=== PATIENT | female | born 1960 | race Caucasian/White ===

== ENCOUNTER 2017-01-25 06:29 | Day surgery (SDC) | payer MEDICARE, OTHER ==
--- NOTE | ~2017-01-25 | EGD ---
EGD REPORT [facility] [address] [address] NAME: ERNA IBARRA : 56 STATUS : REG [facility] PAT#: [id number] AGE: 56 ADM/REG DATE : 01/25/17 MR#: [id number] REPORT SERV DATE: 01/25/17 DICTATED BY: ZAHEER CHRIS DATE: 01/25/17 REPORT STATUS : Draft TRANSCRIBED BY: [facility] DATE: 01/25/17 Endoscopy Center Patient Name: Erna Ibarra Date of : 1960 Attending MD: ZAHEER CHRIS MD Procedure Date No Time: 01/25/2017 Procedure: Upper GI endoscopy Indications: Epigastric abdominal pain, Dyspepsia Medicines: Sedation Required Anesthesia Staff Assistance Complications: No immediate complications. Estimated blood loss: Minimal. Procedure: Pre-Anesthesia Assessment: - ASA Grade Assessment: III - A patient with severe systemic disease. After obtaining informed consent, the endoscope was passed under direct vision. Throughout the procedure, the patient's blood pressure, pulse, and oxygen saturations were monitored continuously. The GIF [id number] was introduced through the mouth, and advanced to the third part of duodenum. The upper GI endoscopy was accomplished without difficulty. The patient tolerated the procedure well. Findings: The examined esophagus was normal. A small hiatus hernia was present. Diffuse mildly erythematous mucosa without bleeding was found in the entire examined stomach. Biopsies were taken with a cold forceps for histology. The examined duodenum was normal. Biopsies were taken with a cold forceps for histology. Impression: - Normal esophagus. - Hiatus hernia. - Erythematous mucosa in the stomach. Biopsied. - Normal examined duodenum. Biopsied. Recommendation: - Await pathology results. - Patient has a contact number available for emergencies. The signs and symptoms of potential delayed complications were discussed with the patient. Return to normal activities tomorrow. Written discharge instructions were provided to the patient. - Return to previous diet daily. - Patient has a contact number available for EGD REPORT [address] [address] NAME: ERNA IBARRA : 56 STATUS : REG [facility]#: [id number] AGE: 56 ADM/REG DATE : 01/25/17 MR#: [id number] REPORT SERV DATE: 01/25/17 DICTATED BY: ZAHEER CHRIS. DATE: 01/25/17 REPORT STATUS : Draft TRANSCRIBED BY: [employer] DATE: 01/25/17 emergencies. The signs and symptoms of potential delayed complications were discussed with the patient. Return to normal activities tomorrow. Written discharge instructions were provided to the patient. - Continue present medications. Procedure Code(s): --- Professional --- 48477, Esophagogastroduodenoscopy, flexible, transoral; with biopsy, single or multiple Diagnosis Code(s): --- Professional --- K31.9, Disease of stomach and duodenum, unspecified R10.13, Epigastric pain K30, Functional dyspepsia K44.9, Diaphragmatic hernia without obstruction or gangrene CPT copyright 2013 [employer]. All rights reserved. The codes documented in this report are preliminary and upon mailmaster review may be revised to meet current compliance requirements. ZAHEER HCRIS MD 01/25/2017 8:07 AM This report has been signed electronically. Number of Addenda: 0 Note Initiated On: 01/25/2017 7:37 AM Scope Withdrawal Time 0 hours 0 minutes 0 seconds [address] [place] [address]
[~2017-01-25 06:29] MED LIST: ASAB PO; BREO ELLIPTA INH; C25 PO; C5 PO; COUMADIN4 MG PO; DEMA20 PO; DUONEB INH; GLUCOPHAGE1000 MG PO; L40 PO; LIPITOR80 MG PO; LOVENOX; LOVENOX1C SC; NEXIUM40 PO; OXYCON20 PO; OXYCONTIN30 MG PO; PLAVIX PO; REQUIP2 PO; ROXICODONE15 MG PO; VENTOLIN HFA INH; XANAX1 MG PO; XARELTO20 MG PO; ZESTORETIC1 TA1 PO; ZESTRIL20 MG PO; ZETIA PO
[2017-01-25 06:52] LABS: INTERNATIONAL NORMAL RATI 1.1 UNITS (-); PROTIME (NOT ORD) 13.9 SEC (12.0-14.5)
== END 2017-01-25 23:59 | disposition home or self-care (01) ==
LOC: DMU 06:29
PROVIDERS: Internal Medicine Gastroenterology
PROC: 0DB68ZX Excision of Stomach, Via Natural or Artificial Opening Endoscopic, Diagnostic (ICD-10-PCS; 2017-01-25)
PROC: 0DB98ZX Excision of Duodenum, Via Natural or Artificial Opening Endoscopic, Diagnostic (ICD-10-PCS; principal; 2017-01-25 08:00)
DX: K31.9 Disease of stomach and duodenum, unspecified (principal); K44.9 Diaphragmatic hernia without obstruction or gangrene; K30 Functional dyspepsia; N18.9 Chronic kidney disease, unspecified; E11.22 Type 2 diabetes mellitus with diabetic chronic kidney disease; I25.10 Atherosclerotic heart disease of native coronary artery without angina pectoris; E66.01 Morbid (severe) obesity due to excess calories; J44.9 Chronic obstructive pulmonary disease, unspecified; J45.909 Unspecified asthma, uncomplicated; F31.9 Bipolar disorder, unspecified; I73.9 Peripheral vascular disease, unspecified; Z88.6 Allergy status to analgesic agent; Z88.5 Allergy status to narcotic agent; Z88.0 Allergy status to penicillin; Z88.2 Allergy status to sulfonamides; Z88.8 Allergy status to other drugs, medicaments and biological substances; Z87.891 Personal history of nicotine dependence; Z90.49 Acquired absence of other specified parts of digestive tract; Z90.710 Acquired absence of both cervix and uterus
CPT/HCPCS: 82962; 85610; 88305

== ENCOUNTER 2017-03-31 08:50 | Inpatient (IN) | payer MEDICARE, OTHER ==
--- NOTE | ~2017-03-31 | CN ---
Consultation Report [facility] [address] [place]. [address] NAME: DRAGAN IBARRA : 56 STATUS : ADM IN PAT#: [id number] AGE: 56 ADM/REG DATE : 04/01/17 MR#: [id number] REPORT SERV DATE: 04/02/17 DICTATED BY: LEVY LOVE IV DATE: 04/02/17 REPORT STATUS : Draft TRANSCRIBED BY: WESLEY DATE: 04/02/17 PULMONARY CONSULTATION. DATE OF CONSULTATION: 04/02/2017 REASON FOR REQUEST: Masslike infiltrate with hemoptysis. HISTORY OF PRESENT ILLNESS: History was obtained from the records and from the patient. Ms. Ibarra is a 56-year-old female with a history of peripheral arterial disease, hypertension, past DVT, chronic kidney disease, reflux disease, anxiety disorder, and COPD with asthma who is admitted with pleuritic pain, shortness of breath, and pneumonic infiltrate in the right upper lobe. The patient noted pleuritic chest pain in the right upper shoulder about two weeks ago. This seemed to progress. She noted increasing chest congestion, cough, and then felt that she was burning up over the last 72 hours. She developed an episode of hemoptysis which she describes as about a quarter cup, which prompted her evaluation in the emergency room. There a chest CT scan was obtained demonstrating a masslike infiltrate in the right upper lobe with some central cavitation without significant adenopathy. The patient was empirically placed on Levaquin with marked clinical improvement. She has had no significant hemoptysis since hospitalization. The patient had no exposure to ill individuals. She does admit to having an episode where she bit her tongue during the night about two months ago and she is concerned may be aspirated to include blood. She does have significant reflux symptoms though has no known aspiration associated with this. She has no history of exposure to high-risk individuals for TB or previous positive PPD. The patient reportedly snores and her bed partner has noted apneic episodes. Sleep is marginally restorative. She does complain of sedentary hypersomnolence. PULMONARY HISTORY: Remarkable for no history of childhood asthma. She carries a diagnosis of adult asthma and COPD. She has had pneumonia in the past. She is more than 80-pack year smoker who quit in 02/2016. She thinks she is up to date on her immunizations. PAST MEDICAL HISTORY: 1. Peripheral arterial disease. 2. Hypertension. 3. DVT. 4. Chronic kidney disease. 5. Reflux disease. 6. Anxiety disorder. 7. COPD with asthma. SURGERIES: The patient has had multiple arterial stents placed in the past. She has bilateral knee replacements. She had a laparoscopic cholecystectomy, total abdominal hysterectomy, and questionable appendectomy. Consultation Report [facility] [address] [place]. [address] NAME: DRAGAN IBARRA : 56 STATUS : ADM IN PAT#: [id number] AGE: 56 ADM/REG DATE : 04/01/17 MR#: [id number] REPORT SERV DATE: 04/02/17 DICTATED BY: LEVY LOVE IV DATE: 04/02/17 REPORT STATUS : Draft TRANSCRIBED BY: WESLEY DATE: 04/02/17 CURRENT MEDICATIONS: The patient is on aspirin 81 mg daily, Coumadin per pharmacy, Demadex 20 mg daily, DuoNeb every four hours, albuterol q.2 hours as needed, guaifenesin 1200 mg twice a day, Levaquin 750 mg daily, Levemir 10 units twice a day, level three insulin sliding scale, Plavix 75 mg daily, Protonix 40 mg twice a day, and Requip 2 mg twice a day. SOCIAL HISTORY: Remarkable for the tobacco use as above. There is no alcohol or illicit drug use. She has a significant other, no children. FAMILY HISTORY: Remarkable for a sister with diabetes, multiple family members with hypertension and coronary artery disease and one sister with breast cancer. REVIEW OF SYSTEMS: 14-system reviewed. Pertinent positives as noted above. PHYSICAL EXAMINATION: GENERAL: This is a pleasant, obese, elderly female, in no acute distress. She is alert, awake, and oriented. VITAL SIGNS: Temperature is 98.2, pulse is 96, respiratory rate 16, saturation 96% on room air and blood pressure is 113/55. HEENT: Normocephalic, atraumatic. Extraocular movements are intact. Pupils react to light. Sclerae and conjunctiva normal. She has no drainage from either nasal passage. She has a Mallampati 4 airway with marked narrowing in the posterior pharyngeal space. No retrognathic lower jaw. NECK: Without any palpable lymphadenopathy or thyromegaly. CHEST: The patient has decreased breath sounds symmetrically. There were some expiratory rhonchi on the right that cleared with cough. No true wheezes are noted. CARDIOVASCULAR: Jugular venous pulsations are difficult to elicit. She has 1+ carotid upstrokes with bilateral bruits. There is distant regular S1, S2 with no clear murmur or S3. Peripheral pulses are diminished. ABDOMEN: Surgical scars noted. Obese, soft, nontender. There are hypoactive bowel sounds. There is no palpable hepatosplenomegaly or mass. EXTREMITIES: Demonstrate scars on her knees. There are chronic venous stasis changes. There is no cyanosis, clubbing, or palpable cords. NEUROLOGIC: Strength is 5/5 and sensation intact to light touch. LABORATORY DATA: Chest CT scan demonstrates the almost masslike infiltrate in the right upper lobe posteriorly with, what appears to be, central necrosis. There is infiltrate. In addition, there is no significant adenopathy. There is evidence for old granulomatous disease. There is some paraseptal and centrilobular emphysematous changes. CBC: Hemoglobin is 8.4, hematocrit 28.1, platelet count was 568,000, and white blood cell count is 18.5, INR is 2.9. Chemistry: Sodium 130, potassium 4.0, chloride 93, bicarbonate 27, BUN 25, creatinine 1.3, glucose of 252, mag is 1.8. ASSESSMENT AND PLAN: Consultation Report [address] [place]. [address] NAME: DRAGAN IBARRA : 56 STATUS : ADM IN [facility]#: [id number] AGE: 56 ADM/REG DATE : 04/01/17 MR#: [id number] REPORT SERV DATE: 04/02/17 DICTATED BY: LEVY LOVE IV DATE: 04/02/17 REPORT STATUS : Draft TRANSCRIBED BY: [employer] DATE: 04/02/17 1. Respiratory. I will add Dulera two puffs twice a day and Spiriva one capsule daily to her medical regimen. DuoNeb will be discontinued. She will be given albuterol q.4 hours while awake and q.2 hours as needed. Oxygen will be provided if needed to maintain saturations greater than 90%. The patient has symptoms consistent with obstructive sleep apnea. The reason for a formal sleep evaluation was discussed with the patient. An overnight oximetry will be obtained on room air. The patient will need outpatient followup of the pneumonic infiltrate with a CBC in 6 to 8 weeks post treatment. 2. Infectious Disease. The patient is clinically improved on the Levaquin with a decrease in the white blood cell count. We will add Flagyl with the questionable history of aspiration. A urine antigen is sent for Legionella as well as for Pneumococcus. We will await the sputum results. We will get a procalcitonin level added to the labs. 3. Hematologic. Iron studies will be obtained. Coumadin adjusted per pharmacy. 4. Renal. We will replace the patient's magnesium with 1 g. 5. Gastrointestinal. Head of bed at 30 to 45 degrees. Protonix to be continued for the reflux. Thank you for consulting us. We will follow the patient with you. ODALIS/WESLEY Levy Love IV, M.D. / [id number] CC: Yefri Montenegro M.D.
--- NOTE | ~2017-03-31 | HP ---
History And Physical [address] [address] NAME: DRAGAN IBARRA : 56 STATUS : ADM [facility] PAT#: [id number] AGE: 56 ADM/REG DATE : 03/31/17 MR#: [id number] REPORT SERV DATE: 03/31/17 DICTATED BY: MAXX OSBORNE DATE: 03/31/17 REPORT STATUS : Draft TRANSCRIBED BY: WESLEY DATE: 03/31/17 DATE OF ADMISSION: 03/31/2017 CHIEF COMPLAINT: Hemoptysis. HISTORY OF PRESENT ILLNESS: This is a 56-year-old woman with past medical history of DVT on Coumadin with INR of 2.6, uncontrolled diabetes, peripheral vascular disease, COPD, who comes into the ED complaining of cough that has progressively worsened over the last week. The patient reports some associated hemoptysis on the day of admission. Reports associated shortness of breath. Denies any chest pain, palpitations, or diaphoresis. Denies any melena, hematemesis, orthopnea, lower extremity swelling, slurred speech, headache, dizziness, loss of consciousness, abdominal pain, nausea, vomiting, or diarrhea. The patient was evaluated in the emergency room and found to have evidence of pneumonia, elevated glucose level, elevated lipase. CT of the abdomen and pelvis was done which did not show any acute process. Fatty liver. Hospitalist consulted for further inpatient management. ALLERGIES: 1. OXYMORPHONE. 2. KEFLEX. 3. PENICILLIN. 4. SULFA. 5. MORPHINE. 6. CODEINE. 7. DARVOCET. 8. RICE. HOME MEDICATIONS: Include 1. Albuterol 2 puffs inhaled every six hours p.r.n. 2. Xanax 1 mg p.o. q.i.d. p.r.n. 3. Aspirin 81 mg p.o. daily. 4. Plavix 75 mg p.o. daily. 5. Nexium 40 mg p.o. b.i.d. 6. Zetia 10 mg p.o. at bedtime. 7. Ellipta 100/25 mcg inhaled daily. 8. Lisinopril 20 mg p.o. daily. 9. Metformin 1000 mg p.o. b.i.d. 10.OxyContin 20 mg every 6 p.r.n. 11.Actos 30 mg p.o. daily. 12.Requip 10 mg p.o. b.i.d. 13.Torsemide 40 mg in the morning. 14.Torsemide 20 mg in the evening. 15.Coumadin 2.5 mg Sunday, Sunday, , and Sunday. 16.Coumadin 5 mg Sunday, Sunday, and Sunday. PAST MEDICAL HISTORY: History And Physical [address] [address] NAME: DRAGAN IBARRA : 56 STATUS : ADM [facility] PAT#: [id number] AGE: 56 ADM/REG DATE : 03/31/17 MR#: [id number] REPORT SERV DATE: 03/31/17 DICTATED BY: MAXX OSBORNE DATE: 03/31/17 REPORT STATUS : Draft TRANSCRIBED BY: WESLEY DATE: 03/31/17 1. History of DVT in 2016. 2. Chronic obstructive pulmonary disease. 3. Hypertension. 4. Peripheral vascular disease, status post femoral stent. 5. Anemia of chronic disease. 6. Chronic kidney disease, stage 2. PAST SURGICAL HISTORY: Femoral stent and cholecystectomy. SOCIAL HISTORY: Denies any alcohol, tobacco, or illicit drug use. FAMILY HISTORY: Positive for high blood pressure. REVIEW OF SYSTEMS: A 12-point review of systems reviewed, otherwise negative per HPI. PHYSICAL EXAMINATION: VITAL SIGNS: Temperature 97.8, heart rate 109, blood pressure 146/64, respiratory rate 22, and O2 saturation 93 on room air. GENERAL: In no acute distress. HEENT: EOMI, PERRLA, anicteric sclerae, nonerythematous pharynx. NECK: Supple. No JVD. RESPIRATORY: Rhonchi. No wheezes. Symmetric expansion. No distress. CARDIOVASCULAR: Regular rate and rhythm. No murmurs, rubs, or gallops. ABDOMEN: Bowel sounds positive. Soft, nontender, nondistended. No rebound or guarding. EXTREMITIES: No edema. No cyanosis. NEUROLOGICAL: Alert and oriented x3. Nonfocal. LABORATORY DATA: WBC of 21, hemoglobin 8.9, hematocrit 28.4, and platelets 624. Sodium 131, potassium 4.8, chloride 93, bicarb 30, lactate 3.6, BUN 24, creatinine 1.06, glucose 439, calcium 10, and magnesium 1.5. IMAGIN. Chest x-ray, impression, right epical consolidating infiltrate. 2. CT of the abdomen and pelvis, impression. a. Hepatomegaly with fatty infiltration of the liver. b. No acute abnormality seen on CT scan of the abdomen and pelvis. ASSESSMENT: 1. Pneumonia community acquired. 2. Diabetes type 2, uncontrolled. 3. History of DVT on Coumadin. 4. Peripheral vascular disease, status post femoral stent, on Plavix and aspirin. 5. Chronic obstructive pulmonary disease without exacerbation. 6. Hypertension. 7. Anemia of chronic disease. 8. Acute on chronic kidney disease, stage 2. History And Physical [address] [address] NAME: DRAGAN IBARRA : 56 STATUS : ADM [facility] PAT#: [id number] AGE: 56 ADM/REG DATE : 03/31/17 MR#: [id number] REPORT SERV DATE: 03/31/17 DICTATED BY: MAXX OSBORNE DATE: 03/31/17 REPORT STATUS : Draft TRANSCRIBED BY: WESLEY DATE: 03/31/17 9. Hypomagnesemia. PLAN: The patient will be admitted to medical bed. Start Levaquin and antitussives. DuoNebs q.6h. while awake. Start low-dose Levemir, sliding scale level 2. Restart appropriate home medications. Consult pharmacy for Coumadin dosing for an INR of 2 to 3. Gentle IV fluids. Labs in the a.m. DVT prophylaxis with Coumadin. GI prophylaxis PPI. Further evaluation and management per clinical course. CODE STATUS: Full code. Total time for history and physical, 35 minutes. RLV/MODL Citlaly Hinojosa MD / [id number] CC: Yefri Montenegro M.D. DINAH JAIN
--- NOTE | ~2017-03-31 | DS ---
Discharge Summary [facility] [address] [place]. [address] NAME: DRAGAN IBARRA : 56 STATUS : DIS IN PAT#: [id number] AGE: 56 ADM/REG DATE : 04/01/17 MR#: [id number] REPORT SERV DATE: 04/04/17 DICTATED BY: DOLLY MILES DATE: 04/03/17 REPORT STATUS : Draft TRANSCRIBED BY: WESLEY DATE: 04/03/17 ADMISSION DATE: 04/01/2017 DISCHARGE DATE: 04/03/2017 CONSULTANTS: Dr. Clifton Love, Pulmonary. DISCHARGE DIAGNOSES: 1. Right upper lobe apical community-acquired pneumonia. 2. Transient hemoptysis, resolved. 3. Acute exacerbation of chronic obstructive pulmonary disease and asthma. 4. Diabetes mellitus type 2 with A1c of 10.2%. 5. History deep venous thrombosis, 2005. 6. History of severe peripheral arterial disease of the legs requiring multiple previous procedure. 7. Chronic pain syndrome involving back, neck, and knees, on chronic opiates. 8. Anemia of chronic disease with iron deficiency. 9. Obesity. 10.Fatty liver. 11.Suspected obstructive sleep apnea. HISTORY: This patient presented to the emergency room with cough, pleuritic pain, hemoptysis, found to have a right upper lobe infiltrate and was referred to our team for inpatient care. She was started on Levaquin intravenously in the emergency room. Two blood cultures drawn on admission, no growth. The patient's white blood count on admission was 21,000, by discharge was 15,000. The hemoptysis resolved and did not come back. She is on chronic Coumadin from Dr. Gill on for previous DVT and suspected hypercoagulable condition contributing to her peripheral arterial disease as well. Her INR at admission was 2.6, at the highest 3.2, at discharge 2.4. She does have anemia, hemoglobin is ranging between 7.9 and 8.9, it is microcytic, her iron levels are low. She was seen by Pulmonary, Dr. Love. He want her to be on a nebulizer. He changed her inhalers to Breo Ellipta. He wants to see her back in the office, because the CT scan of her chest showed an almost masslike infiltrate in the right upper lobe with possible central necrosis. She is advised to reduce her warfarin dose until her antibiotics are completed and a followup immediately thereafter with her Coumadin Clinic. She has chronic back pain, neck pain, and knee pain, and she want to know if I would increase her pain medicines and I told her I did not think her pneumonia would require any increased pain medicines and she should continue to see her pain management clinic in the [place] area for this. This patient is on aspirin, Plavix, and Coumadin, so bleeding is a risk for her. This is something her Vascular Surgery team has recommended though for her. Discharge Summary [facility] [address] [place]. [address] NAME: DRAGAN IBARRA : 56 STATUS : DIS IN PAT#: [id number] AGE: 56 ADM/REG DATE : 04/01/17 MR#: [id number] REPORT SERV DATE: 04/04/17 DICTATED BY: DOLLY MILES DATE: 04/03/17 REPORT STATUS : Draft TRANSCRIBED BY: WESLEY DATE: 04/03/17 DISCHARGE MEDICATIONS: Aspirin 81 mg daily, Plavix 75 mg daily, Coumadin half of a 5 mg tablet every bedtime which is a reduced dose while she is on the Levaquin, iron sulfate 300 mg daily, [id number] guaifenesin 1200 mg b.i.d., NovoLog level 3 before meals and at bedtime sliding scale, Levaquin 750 mg daily for five more days, Flagyl 500 mg t.i.d. for seven more days per Pulmonary, Nexium 40 mg b.i.d. as a chronic medicine, Requip 2 mg twice a day, Florastor tablet twice a day for three weeks, Demadex 40 mg daily in the morning 20 mg in the evening, Anoro Ellipta 62.5/25 a puff daily, albuterol nebulized q.i.d. p.r.n. shortness of breath, Tylenol 650 q.6 hours p.r.n. mild pain, Xanax a mg q.i.d. p.r.n. anxiety, metformin 1000 mg b.i.d., oxycodone 20 mg q.6 hours p.r.n. pain which is a chronic medicine for her, Zetia 10 mg every evening, Zestril 20 mg every morning. We are stopping her lactose and we will put her on Lantus 25 units subcutaneously every bedtime and electric accounting machine operator met with the patient. She should follow up with Dr. Love in four to [address] weeks [address] a week before that. She should see her PCP in one to two weeks as Dr. Oscar Esparza. She should see her pain management in [place] as per her usual routine, same with her GI in [facility] Dr. Gill. She also sees another vascular, which is Derek Ramos. I spent 65 minutes today with the patient and with discharge planning. DICTATED BY: Breanna Mendoza/WESLEY Dolly Miles M.D. / [id number] CC: Breanna Mendoza M.D. Nathan Mull IV, M.D. HADY LICHAA
--- NOTE | ~2017-03-31 | PUL ---
[facility] [address] [place]. [address] NAME: DRAGAN IBARAR : 56 STATUS : DIS IN PAT#: [id number] AGE: 56 ADM/REG DATE : 04/01/17 MR#: [id number] REPORT SERV DATE: 04/03/17 DICTATED BY: CONOR GABRIEL DATE: 04/03/17 REPORT STATUS : Draft TRANSCRIBED BY: MODL DATE: 04/03/17 PULMONARY FUNCTION TEST OVERNIGHT PULSE OXIMETRY TESTS: Overnight pulse oximetry done on room air. START TIME: 04/02/2017 TOTAL RECORDING TIME: 6 hours 47 minutes. Mean pulse 99, mean oxygen saturation 94.3%. Time with an oxygen saturation less than 88% is 6 minutes 38 seconds, 1.6% of the night. INTERPRETATION: This is an abnormal study with nocturnal hypoxia, somewhat mild. However, upon review of the SpO2 graft, the patient does have evidence of probable underlying obstructive sleep apnea, this is a clinical concern, recommend outpatient polysomnogram versus starting patient on oxygen therapy. HFQ/MODL Conor Gabriel MD / [id number] CC: Breanna Mendoza KEVIN
[2017-03-31 09:14] LABS: BASOPHILS 0 %; BASOPHILS ABSOLUTE 0.01 10/3/uL (0.0-0.16); EOSINOPHILS 0.2 %; EOSINOPHILS ABSOLUTE 0.05 10/3/uL (0.0-0.53); ER CBC TAT 0 Hrs 05 Mins; IMMATURE GRANULOCYTES 0.8 %; IMMATURE GRANULOCYTES ABSOLUTE 0.17 10/3/uL (0.0-0.11); LYMPHOCYTES 7.6 %; LYMPHOCYTES ABSOLUTE 1.59 10/3/uL (0.67-4.30); MEAN CORPUS HGB CONC 31.3 g/dL (32.0-36.0); MEAN CORPUSCULAR HEMOGLOB 23.7 pg (26.0-34.0); MONOCYTES 5.2 %; MONOCYTES ABSOLUTE 1.09 10/3/uL (0.21-1.20); NEUTROPHILS 86.2 %; NEUTROPHILS ABSOLUTE 18.05 10/3/uL (2.02-8.40); RBC DISTRIBUTION WIDTH 18.2 % (12.0-16.0); RED CELL COUNT 3.76 10/6/uL (4.0-5.6)
[2017-03-31 09:15] LABS: HEMATOCRIT 28.4 % (36.0-48.0); HEMOGLOBIN 8.9 g/dL (12.0-16.0); MANUAL DIFF NO %; MEAN CORPUSCULAR VOLUME 75.5 fL (80-100); PLATELET COUNT 624 10/3/uL (150-400)
[2017-03-31 09:22] LABS: INTERNATIONAL NORMAL RATI 2.6 UNITS (-); PARTIAL THROMBO TIME 42.8 SEC (22.5-37.2)
[2017-03-31 09:25] LABS: D-DIMER QUANTITATIVE 0.37 ug/mLFEU (< 0.50)
[2017-03-31 09:29] LABS: ASCORBIC ACID (UR NOT ORDER) 20 (NEG); BILIRUBIN, URINE NEGATIVE (NEG); ER URINALYSIS TAT 0 Hrs 16 Mins; KETONE, URINE NEGATIVE (NEG); LEUKOCYTE ESTERASE(NOT OR NEG (NEG); NITRITE (URINE) NEG (NEG); WBC (NOT ORDERED) (RFLEX) < 1 (0-5)
[2017-03-31 09:30] LABS: ALBUMIN 2.4 G/DL (3.5-5.0); ALKALINE PHOSPHATASE 124 U/L (45-117); CHEST PAIN PROFILE TAT 0 Hrs 21 Mins; CHLORIDE, SERUM 93 MMOL/L (96-112); CREATININE 1.06 MG/DL (0.55-1.02); GFR AFRICAN AMERICAN 67 ML/MIN (>=60); GFR NON AFRICAN AMERICAN 58 ML/MIN (>=60); POTASSIUM, SERUM 4.8 MMOL/L (3.5-5.3); PROTIME (NOT ORD) 27.5 SEC (12.0-14.5); SGOT(AST) 9 U/L (5-40); SGPT(ALT) 11 U/L (5-65); SODIUM, SERUM 131 MMOL/L (135-148); TOTAL BILIRUBIN 0.2 MG/DL (0-1.2); TOTAL PROTEIN 7.5 G/DL (6.0-8.5); TROPONIN I <0.02 NG/ML (<0.05)
[2017-03-31 09:31] LABS: BUN (BLOOD UREA NITROGEN) 24 MG/DL (6-23); CALCIUM, SERUM 10.1 MG/DL (8.5-10.4); CO2 (CARBON DIOXIDE) 30 MMOL/L (24-34); DIRECT BILIRUBIN < 0.1 MG/DL (0.0-0.4); GLUCOSE, SERUM 439 MG/DL (60-99); INDIRECT BILIRUBIN(NOT ORDER) 0.1 MG/DL (0.1-0.9)
[2017-03-31] MEDS ORDERED: DEMA20 PO (10:14)
[2017-03-31] MEDS ORDERED: C25 PO (10:16)
[2017-03-31] MEDS ORDERED: C5 PO (10:17)
[2017-03-31] MEDS ORDERED: ACTOS30 PO (10:17)
[2017-03-31 10:32] LABS: LACTATE 3.6 MMOL/L (0.3-2.4)
[2017-03-31 15:11] LABS: FREE T4 1.23 NG/DL (0.76-1.46)
[2017-04-01 03:27] LABS: ALLENS TEST Pos; BE (BASE EXCESS) 3.6 MEQ/L (0 +/- 2.5); HCO3 (ACTUAL BICARBONATE) 27.8 MEQ/L (23-27); HEMOBLOGIN CONTENT 10.4 G/DL (12-16); INSTRUMENT SERIAL # 8087; METHEMOGLOBIN 0.1 % (0-3); O2 CONTENT 13.9 VOL% (18-24); OPERATOR ID 18801; PCO2 (CO2 TENSION) 40 MMHG (35-45); PO2 (O2 TENSION) 82 MMHG (79-93); SAMPLE Arterial; pH 7.46 (7.37-7.43)
[2017-04-01 07:42] LABS: BASOPHILS 0.1 %; BASOPHILS ABSOLUTE 0.02 10/3/uL (0.0-0.16); EOSINOPHILS 0.6 %; HEMATOCRIT 27.7 % (36.0-48.0); HEMOGLOBIN 8.3 g/dL (12.0-16.0); IMMATURE GRANULOCYTES ABSOLUTE 0.18 10/3/uL (0.0-0.11); LYMPHOCYTES 10.9 %; LYMPHOCYTES ABSOLUTE 1.87 10/3/uL (0.67-4.30); MEAN CORPUSCULAR HEMOGLOB 23.1 pg (26.0-34.0); MEAN CORPUSCULAR VOLUME 76.9 fL (80-100); MEAN PLATELET VOLUME 9.3 fL (9.2-13.0); MONOCYTES 6.2 %; MONOCYTES ABSOLUTE 1.06 10/3/uL (0.21-1.20); NEUTROPHILS 81.2 %; NEUTROPHILS ABSOLUTE 13.96 10/3/uL (2.02-8.40); PLATELET COUNT 511 10/3/uL (150-400); RBC DISTRIBUTION WIDTH 18.3 % (12.0-16.0); WHITE BLOOD CELLS 17.2 10/3/uL (4.5-10.5)
[2017-04-01 07:43] LABS: MANUAL DIFF NO %
[2017-04-01 07:51] LABS: INTERNATIONAL NORMAL RATI 3.2 UNITS (-)
[2017-04-01 07:53] LABS: PROTIME (NOT ORD) 32.1 SEC (12.0-14.5)
[2017-04-01 07:56] LABS: BUN (BLOOD UREA NITROGEN) 16 MG/DL (6-23); CALCIUM, SERUM 9.1 MG/DL (8.5-10.4); CHLORIDE, SERUM 96 MMOL/L (96-112); CO2 (CARBON DIOXIDE) 25 MMOL/L (24-34); CREATININE 0.88 MG/DL (0.55-1.02); GFR AFRICAN AMERICAN 84 ML/MIN (>=60); GFR NON AFRICAN AMERICAN 72 ML/MIN (>=60); GLUCOSE, SERUM 271 MG/DL (60-99); POTASSIUM, SERUM 4.1 MMOL/L (3.5-5.3); SODIUM, SERUM 133 MMOL/L (135-148)
[2017-04-02 08:51] LABS: BASOPHILS 0.1 %; BASOPHILS ABSOLUTE 0.02 10/3/uL (0.0-0.16); EOSINOPHILS 0.9 %; EOSINOPHILS ABSOLUTE 0.16 10/3/uL (0.0-0.53); HEMATOCRIT 28.1 % (36.0-48.0); HEMOGLOBIN 8.4 g/dL (12.0-16.0); IMMATURE GRANULOCYTES ABSOLUTE 0.19 10/3/uL (0.0-0.11); LYMPHOCYTES 9.5 %; LYMPHOCYTES ABSOLUTE 1.76 10/3/uL (0.67-4.30); MEAN CORPUS HGB CONC 29.9 g/dL (32.0-36.0); MEAN CORPUSCULAR HEMOGLOB 23.3 pg (26.0-34.0); MEAN CORPUSCULAR VOLUME 78.1 fL (80-100); MEAN PLATELET VOLUME 9.9 fL (9.2-13.0); MONOCYTES 5.4 %; NEUTROPHILS 83.1 %; PLATELET COUNT 568 10/3/uL (150-400); RBC DISTRIBUTION WIDTH 18.3 % (12.0-16.0); WHITE BLOOD CELLS 18.5 10/3/uL (4.5-10.5)
[2017-04-02 08:52] LABS: MANUAL DIFF NO %
[2017-04-02 08:55] LABS: INTERNATIONAL NORMAL RATI 2.9 UNITS (-); PROTIME (NOT ORD) 29.7 SEC (12.0-14.5)
[2017-04-02 09:00] LABS: BUN (BLOOD UREA NITROGEN) 25 MG/DL (6-23); CALCIUM, SERUM 9.4 MG/DL (8.5-10.4); CHLORIDE, SERUM 93 MMOL/L (96-112); CO2 (CARBON DIOXIDE) 27 MMOL/L (24-34); GFR AFRICAN AMERICAN 52 ML/MIN (>=60); GFR NON AFRICAN AMERICAN 45 ML/MIN (>=60); GLUCOSE, SERUM 252 MG/DL (60-99); SODIUM, SERUM 130 MMOL/L (135-148)
[2017-04-02 18:38] LABS: IRON BINDING CAPACITY 288 MCG/DL (225-410); IRON, SERUM 21 MCG/DL (35-150)
[2017-04-03 08:53] LABS: BASOPHILS 0.1 %; BASOPHILS ABSOLUTE 0.01 10/3/uL (0.0-0.16); EOSINOPHILS 1.5 %; EOSINOPHILS ABSOLUTE 0.23 10/3/uL (0.0-0.53); HEMATOCRIT 26.4 % (36.0-48.0); HEMOGLOBIN 7.9 g/dL (12.0-16.0); IMMATURE GRANULOCYTES 1.7 %; IMMATURE GRANULOCYTES ABSOLUTE 0.25 10/3/uL (0.0-0.11); LYMPHOCYTES 8.3 %; LYMPHOCYTES ABSOLUTE 1.24 10/3/uL (0.67-4.30); MEAN CORPUS HGB CONC 29.9 g/dL (32.0-36.0); MEAN CORPUSCULAR HEMOGLOB 23.5 pg (26.0-34.0); MEAN CORPUSCULAR VOLUME 78.6 fL (80-100); MEAN PLATELET VOLUME 9.6 fL (9.2-13.0); MONOCYTES 4.2 %; MONOCYTES ABSOLUTE 0.63 10/3/uL (0.21-1.20); NEUTROPHILS 84.2 %; NEUTROPHILS ABSOLUTE 12.66 10/3/uL (2.02-8.40); PLATELET COUNT 545 10/3/uL (150-400); RBC DISTRIBUTION WIDTH 18.4 % (12.0-16.0); RED CELL COUNT 3.36 10/6/uL (4.0-5.6)
[2017-04-03 08:54] LABS: MANUAL DIFF NO %
[2017-04-03 08:59] LABS: INTERNATIONAL NORMAL RATI 2.4 UNITS (-); PROTIME (NOT ORD) 25.9 SEC (12.0-14.5)
[2017-04-03 09:01] LABS: BUN (BLOOD UREA NITROGEN) 25 MG/DL (6-23); CHLORIDE, SERUM 101 MMOL/L (96-112); CO2 (CARBON DIOXIDE) 25 MMOL/L (24-34); CREATININE 1.11 MG/DL (0.55-1.02); GFR AFRICAN AMERICAN 63 ML/MIN (>=60); GFR NON AFRICAN AMERICAN 55 ML/MIN (>=60); GLUCOSE, SERUM 269 MG/DL (60-99); SODIUM, SERUM 134 MMOL/L (135-148)
[2017-04-03 11:57] LABS: PHOSPHORUS, SERUM 2.5 MG/DL (2.5-4.5)
[2017-04-03] MEDS ORDERED: FESO4 PO (13:37)
[2017-04-03] MEDS ORDERED: HUMI PO (13:38)
[2017-04-03] MEDS ORDERED: NOVOPENMIX SC (13:39)
[2017-04-03] MEDS ORDERED: LEVAQUIN750 MG PO (13:39)
[2017-04-03] MEDS ORDERED: FLORASTOR250 MG PO (13:40)
[2017-04-03] MEDS ORDERED: ANOROELLIPTA INH (13:41)
[2017-04-03] MEDS ORDERED: FLAG500TAB PO (13:42)
[2017-04-03] MEDS ORDERED: ALBUTEROL0.083 % INH (13:43)
[2017-04-03] MEDS ORDERED: T PO (13:43)
[2017-04-03] MEDS ORDERED: LANTUS SC (13:47)
== END 2017-04-03 14:35 | disposition home or self-care (01) | DRG 190 ==
LOC: ER 08:50 → 4SO 11:58
PROVIDERS: Internal Medicine; Nurse Practitioner
DX: J44.0 Chronic obstructive pulmonary disease with (acute) lower respiratory infection (principal); J18.9 Pneumonia, unspecified organism; N17.9 Acute kidney failure, unspecified; R04.2 Hemoptysis; E11.22 Type 2 diabetes mellitus with diabetic chronic kidney disease; E11.65 Type 2 diabetes mellitus with hyperglycemia; Z88.5 Allergy status to narcotic agent; Z88.1 Allergy status to other antibiotic agents; Z88.0 Allergy status to penicillin; Z91.018 Allergy to other foods; J44.9 Chronic obstructive pulmonary disease, unspecified; Z86.718 Personal history of other venous thrombosis and embolism; Z79.01 Long term (current) use of anticoagulants; Z79.82 Long term (current) use of aspirin; Z79.02 Long term (current) use of antithrombotics/antiplatelets; Z79.84 Long term (current) use of oral hypoglycemic drugs; I12.9 Hypertensive chronic kidney disease with stage 1 through stage 4 chronic kidney disease, or unspecified chronic kidney disease; N18.2 Chronic kidney disease, stage 2 (mild); D63.8 Anemia in other chronic diseases classified elsewhere; Z95.820 Peripheral vascular angioplasty status with implants and grafts; E83.42 Hypomagnesemia; K21.9 Gastro-esophageal reflux disease without esophagitis; J45.909 Unspecified asthma, uncomplicated; Z96.653 Presence of artificial knee joint, bilateral; G47.33 Obstructive sleep apnea (adult) (pediatric); K76.0 Fatty (change of) liver, not elsewhere classified; J44.1 Chronic obstructive pulmonary disease with (acute) exacerbation; Z87.891 Personal history of nicotine dependence
CPT/HCPCS: 36415; 36600; 71020; 71260; 74176; 80048; 80076; 81001; 82805; 82962; 83036; 83540; 83550; 83605; 83690; 83735; 84100; 84439; 84443; 84484; 85025; 85379; 85610; 85730; 86850; 86900; 86901; 87040; 87070; 87205; 87449; 93005; 94640; 94762; 99285; A9270-GY; J1956; J3475